=== PATIENT | male | born 1955 ===

== ENCOUNTER → 2024-05-28 | Outpatient (CLI) | payer OTHER ==
[~2024-05-28] MED LIST: ACET250T31 PO; ARIP10TA38 PO; ARIP400S3 IM; ASPI-1450 PO; ATOR40TA28 PO; ATRO5DRO13 OD; BRIM5DRO9 OD; BRIM5DRO9 OS; BRIM5DRO9 OU; CAPS60CR3 TP; CIPR2.5D17 OD; FAMO20 PO; FINA-27 PO; FLUO-418 PO; HYDR50CA7 PO; LEVA15HF3 PO; LEVE-71 PO; LISI-892 PO; METF-1211 PO; METO25XL PO; MIRT-89 PO; MOME13HF11 IH; OMEP-148 PO; OXYB5TAB20 PO; PRAZ1 PO; PRAZ2 PO; PREDAOS OD; TIMO5DRO20 OD; XALA2.5OS OU
== END | disposition home or self-care (01) ==
LOC: TELEHEALTH 10:52
PROVIDERS: ATTEND Internal Medicine
DX: R07.89 Other chest pain (principal); E11.9 Type 2 diabetes mellitus without complications; E78.5 Hyperlipidemia, unspecified; G40.909 Epilepsy, unspecified, not intractable, without status epilepticus; G89.29 Other chronic pain; I11.9 Hypertensive heart disease without heart failure; J44.9 Chronic obstructive pulmonary disease, unspecified; K21.9 Gastro-esophageal reflux disease without esophagitis; Z79.51 Long term (current) use of inhaled steroids; Z79.82 Long term (current) use of aspirin; Z79.84 Long term (current) use of oral hypoglycemic drugs; Z79.899 Other long term (current) drug therapy
CPT/HCPCS: Q3014